=== PATIENT | male | born 1995 | race Caucasian/White ===

== ENCOUNTER 2016-09-13 15:22 | Emergency (ER) | payer SELFPAY ==
--- NOTE | ~2016-09-13 | ER ---
PATIENT'S NAME: GEORGETTE GARNETT [facility] AGE: 21 Y [address] ROOM: [place] [id number] LOCATION: [facility] ADMIT DATE: 09/13/2016 ER/Outpatient Report DISCHARGE DATE: 09/13/2016 FAMILY PHYSICIAN: Butch Thakkar MD ATTENDING PHYSICIAN: Felipe Plaza Time of Arrival: 1525 hours. Time of Exam: 1530 hours. CHIEF COMPLAINT: Right lower quadrant abdominal pain. HISTORY OF PRESENT ILLNESS: The patient states for the past 24 hours, he has had right lower quadrant abdominal pain. It has increased in intensity this afternoon. He states the pain is worse when he is up moving around. If he is just lying down, the pain is there, but not quite as strong. Denies being nauseated, has not vomited. Had a normal bowel movement yesterday. Has had some urinary frequency, but no pain with urination. He describes the abdominal pain as being sharp. ALLERGIES: AMBIEN. MEDICATIONS: Multivitamins. PAST MEDICAL HISTORY: Benign. PAST SURGERIES: Hernia repair in the right inguinal area and three different ear surgeries. SOCIAL HISTORY: Smokes half pack per day and has for the past 2 years. Denies use of illicit drugs and rare alcohol use. REVIEW OF SYSTEMS: All negative other than those mentioned in the HPI. PHYSICAL EXAMINATION: VITAL SIGNS: He weighed 51 kg, blood pressure is 111/74, pulse is 61, respirations 18, temperature of 97.8, O2 sat is 96% on room air. GENERAL: He is awake, alert, and oriented x4. SKIN: [place], warm, and dry. PATIENT'S NAME: GEORGETTE GARNETT [facility] AGE: 21 Y [address] ROOM: [place], [place] [address] LOCATION: ED ADMIT DATE: 09/13/2016 ER/Outpatient Report DISCHARGE DATE: 09/13/2016 FAMILY PHYSICIAN: Butch Thakkar MD ATTENDING PHYSICIAN: Felipe Plaza LUNGS: Respirations are even and nonlabored. Lung sounds are clear throughout. HEART: Regular rate and rhythm. ABDOMEN: Soft, nondistended. Bowel sounds are present. He is tender in the right lower quadrant. No rebound tenderness. Negative Mulligan. No pain in the left lower quadrant area. EXTREMITIES: He walks with a steady even gait. He does not stoop over when he walks. EMERGENCY DEPARTMENT COURSE: Saline lock was initiated. Lab work was drawn. CBC is within normal limits. Chem panel is within normal limits. Clean-catch UA was obtained, it is negative for bacteria. CT scan was obtained. Radiologist reports that he is unable to find the appendix. There does not appear to be any inflammatory changes. There is some free fluid, but no other abnormalities are seen. The patient remained comfortable lying on the bed. IMPRESSION: Abdominal pain. PLAN: Home, rest. Talked with him about doing clear liquid diet and gradually increase his diet. Tylenol or ibuprofen for discomfort. If symptoms do not improve in the next 2-3 days, I encouraged him to follow up with his primary provider or he is free to return to the ER. He and his family verbalized understanding. SUSANNAH ONOFRE APRN FOR [facility]/tai /[id number] d: 09/14/16 0039 t: 09/18/16 1244, OUTPATIENT REPORT
[2016-09-13 15:57] LABS: BILIRUBIN URINE NEGATIVE (NEGATIVE); BLOOD URINE 10 /UL (NEGATIVE); COLOR URINE YELLOW (YELLOW); GLUCOSE URINE NEGATIVE (NEGATIVE); KETONE URINE NEGATIVE (NEGATIVE); LEUKOCYTES URINE 25 /UL (NEGATIVE); NITRITE URINE NEGATIVE (NEGATIVE); PROTEIN URINE NEGATIVE (NEGATIVE); TURBIDITY URINE CLEAR (CLEAR); UROBILINOGEN URINE 1 mg/dL (NORMAL)
[2016-09-13 16:02] LABS: BASOPHIL # 0.1 K/uL (0.0-0.2); BASOPHIL % 1.1 %; EOSINOPHIL # 0.2 K/uL (0.0-0.5); EOSINOPHIL % 2.6 %; HEMATOCRIT 45.1 % (37.0-53.0); HEMOGLOBIN 15.1 g/dL (12.0-17.0); IMMATURE GRANULOCYTE % 0.1 %; LYMPHOCYTE # 2.2 K/uL (0.8-4.0); LYMPHOCYTE % 29.1 %; MCH 29.2 pg (27.0-34.0); MCHC 33.5 gm/dL (32.0-36.5); MCV 87.1 fl (83.0-98.0); MONOCYTE # 0.6 K/uL (0.0-1.0); MONOCYTE % 7.3 %; NEUTROPHIL # (ANC) 4.5 K/uL (1.4-9.0); NEUTROPHIL % 59.8 %; NRBC % 0 /100WBC (0-0.00); PLATELET COUNT 163 K/uL (150-450); RBC 5.18 M/uL (4.00-6.00); RDW-CV 11.9 % (11.9-14.6); WBC 7.6 K/uL (4.0-11.0)
[2016-09-13 16:03] LABS: RBC URINE 0-2 #/HPF (NEGATIVE)
[2016-09-13 16:04] LABS: BACTERIA URINE NEGATIVE (NEGATIVE); EPITHELIAL URINE NEGATIVE #/HPF (NEGATIVE); RENAL EPITH URINE NEGATIVE #/HPF (NEGATIVE)
[2016-09-13 16:22] LABS: ALBUMIN 4.2 gm/dL (3.5-5.0); ALK PHOS 68 IU/L (33-138); ALT 28 IU/L (12-78); ANION GAP 12.1 (10.0-19.0); AST 19 IU/L (10-40); BLOOD UREA NITROGEN 10 mg/dL (6-24); CALCIUM 9.6 mg/dL (8.5-10.5); CHLORIDE 106 mMol/L (96-110); CO2 27 mMol/L (22-32); ESTIMATED GFR (MDRD EQUATION) > 60; POTASSIUM 4.1 mMol/L (3.7-5.1); SODIUM 141 mMol/L (135-145); TOTAL BILIRUBIN 0.5 mg/dL (0.0-1.5); TOTAL PROTEIN 7.2 g/dL (6.0-8.4)
== END 2016-09-13 17:05 | disposition disaster alternative care site (69) ==
LOC: GMED 15:22
PROVIDERS: Emergency Medicine
DX: R10.31 Right lower quadrant pain (principal); F17.210 Nicotine dependence, cigarettes, uncomplicated; Z88.8 Allergy status to other drugs, medicaments and biological substances; Z98.890 Other specified postprocedural states
CPT/HCPCS: Q9967

== ENCOUNTER 2016-10-02 23:10 | Emergency (ER) | payer SELFPAY ==
--- NOTE | ~2016-10-02 | ER ---
PATIENT'S NAME: GEORGETTE GARNETT [facility] AGE: 21 Y [address] ROOM: [place] [address] LOCATION: ED ADMIT DATE: 10/02/2016 ER/Outpatient Report DISCHARGE DATE: 10/02/2016 FAMILY PHYSICIAN: Butch Thakkar MD ATTENDING PHYSICIAN: Felipe Plaza TIME OF ARRIVAL: 2314 hours. TIME OF EXAM: 2316 hours. CHIEF COMPLAINT: Red maira to left chest area. HISTORY OF PRESENT ILLNESS: The patient stated that he noticed a reddened area to his left chest area near the armpit area. He states that it is tender with movement; otherwise, it does not cause any problems, he has not had any itching nor he has not had any drainage from it. Noticed it last night for the 1st time. CURRENT MEDICATIONS AND ALLERGIES: On his chart and were reviewed by me. PAST MEDICAL HISTORY: Benign. PAST SURGICAL HISTORY: Ear surgery, hernia repair. SOCIAL HISTORY: He smoked half-pack per day and has for the last 4 years. Denies use of drugs or alcohol. REVIEW OF SYSTEMS: All negative other than those mentioned in the HPI. PHYSICAL EXAMINATION: VITAL SIGNS: He weighed 53.2 kg, blood pressure is 105/67, pulse is 62, respirations 16, temp of 97.9, and O2 sat is 98% on room air. GENERAL: He is awake, alert, and oriented x4. SKIN: [place], warm, and dry. RESPIRATIONS: Even and nonlabored. CHEST: The patient has approximately 0.5 cm flattened round reddened area of the left chest near the armpit area with a center-raised spot and no drainage from PATIENT'S NAME: GEORGETTE GARNETT [facility] AGE: 21 Y [address] ROOM: [place] [address] LOCATION: [facility] ADMIT DATE: 10/02/2016 ER/Outpatient Report DISCHARGE DATE: 10/02/2016 FAMILY PHYSICIAN: Butch Thakkar MD ATTENDING PHYSICIAN: Felipe Plaza that area. It is not tender to touch. IMPRESSION: Bug bite. PLAN: Home, rest, keep an eye on it. Hydrocortisone cream if needed, can use Benadryl if it starts to itch. If it gets worse instead of better within the next 24-48 hours, he should see Dr. Thakkar or have it rechecked in the ER. He verbalized understanding. SUSANNAH ONOFRE APRN FOR [facility]/tai /[id number] d: 10/03/16 0304 t: 10/09/16 1304, OUTPATIENT REPORT
== END 2016-10-02 23:23 | disposition disaster alternative care site (69) ==
LOC: GMED 23:10
DX: S20.362A Insect bite (nonvenomous) of left front wall of thorax, initial encounter (principal); F17.210 Nicotine dependence, cigarettes, uncomplicated; I10 Essential (primary) hypertension; W57.XXXA Bitten or stung by nonvenomous insect and other nonvenomous arthropods, initial encounter